=== PATIENT | female | born 1940 | race Caucasian/White ===

== ENCOUNTER 2017-07-27 08:33 | Outpatient (CLI) | payer MEDICARE, BC ==
--- NOTE | 2017-07-27 10:54 | CT ---
CT OF THE ABDOMEN AND PELVIS WITHOUT AND WITH CONTRAST: Date: 07/27/17 HISTORY: Mass in the kidney seen on prior examination. History of kidney stones. TECHNIQUE: Multiple contiguous axial images were obtained in a CT of the abdomen and pelvis without and with IV contrast. Postcontrast images obtained in nephrographic and excretory phases. Coronal reformats were performed. FINDINGS: There is a large cyst in the liver measuring approximately 13.0 cm in size. The gallbladder has been removed. Other smaller hypodensities in the liver also likely represent smaller cysts. There are subcentimeter hypodensities in the right kidney which may represent small angiomyolipomas o r cysts. The kidneys are otherwise unremarkable without evidence of calcifications, hydronephrosis, o r suspicious masses. The adrenal glands, spleen, and pancreas are unremarkable. No free air, free fluid, or stranding changes are seen in the abdomen or pelvis. The patient is statu s post hysterectomy. The large and small bowel are unremarkable. No abdominal or pelvic lymphadenopat hy are seen. Atherosclerotic calcifications are seen in the aorta. IMPRESSION: 1. Hepatic cysts. 2. Hypodensities in the right kidney may represent small angiomyolipomas or cysts. No suspicious pancho al mass is identified. POS: [facility]
[2017-07-27] MEDS ORDERED: Iopamidol 370 76% 100 ML VIAL ONE (13:50)
== END 2017-07-27 08:34 | disposition home or self-care (01) ==
LOC: CT 08:33
PROVIDERS: ATTEND Urology
DX: N28.89 Other specified disorders of kidney and ureter (principal); K76.89 Other specified diseases of liver
CPT/HCPCS: 74178